=== PATIENT | male | born 1980 | race African-American/Black ===

== ENCOUNTER 2017-11-18 09:56 | Emergency (ER) | payer SELFPAY ==
[~2017-11-18] VITALS: Ht 170.2 cm; Wt 54.4 kg
[2017-11-18 10:02] VITALS: Ht 170.2 cm; Wt 54.4 kg
[2017-11-18 10:34] LABS: BASOPHIL % 0.5 % (0-2); PLATELET COUNT 248 x10^3mcL (130-400); RED CELL DISTRIBUTION WIDTH 12.8 % (11.5-14.5)
[2017-11-18 10:59] LABS: CALCIUM 9.3 mg/dL (8.5-10.1); CARBON DIOXIDE 22.2 mmol/L (21-32); CREATININE SERUM 1.5 mg/dL (0.7-1.3); POTASSIUM SERUM 5.4 mmol/L (3.5-5.1)
[2017-11-18 11:01] LABS: ALBUMIN 4.2 g/dL (3.4-5.0); BILIRUBIN TOTAL 0.98 mg/dL (0.20-1.00)
[2017-11-18 11:03] LABS: TOTAL PROTEIN, SERUM 9.2 g/dL (6.4-8.2)
[2017-11-18 13:11] LABS: UA SPECIFIC GRAVITY <=1.005 (1.005-1.035); microscopic required? YES; urine erythrocyte TRACE (NEGATIVE)
[2017-11-18 13:35] LABS: AMPHETAMINE QUAL UR NONE DETECTED (NEG <=1000)
[2017-11-18 13:45] LABS: T3 TOTAL 0.71 ng/mL
[2017-11-18 14:41] LABS: AMYLASE 39 U/L (25-115); PHOSPHOROUS 6.5 mg/dL (2.5-4.9)
[2017-11-18 14:42] LABS: CHOLESTEROL 228 mg/dL (<200); CHOLESTEROL/HDL RATIO 7.4; HDL CHOLESTEROL 31 mg/dL (40-60); TRIGLYCERIDES 571 mg/dL (<150)
[2017-11-18 15:03] LABS: FREE T4 1.01 ng/dL (0.76-1.46); FREE THYROXINE INDEX 2.2 ug/dL (1.4-4.5)
[2017-11-18 17:15] LABS: CALCIUM 8.7 mg/dL (8.5-10.1); CARBON DIOXIDE 27.3 mmol/L (21-32); CHLORIDE SERUM 103 mmol/L (98-107); GFR1 > 60 mL/min; GLUCOSE SERUM 344 mg/dL (74-106); POTASSIUM SERUM 4.8 mmol/L (3.5-5.1); SODIUM SERUM 143 mmol/L (136-145)
[2017-11-18 17:20] LABS: MAGNESIUM 2.7 mg/dL (1.8-2.4); PHOSPHOROUS 3.9 mg/dL (2.5-4.9)
[2017-11-19 07:18] VITALS: BP 128/79
== END 2017-11-19 07:18 | disposition home or self-care (01) ==
LOC: EDBD 09:56 → ED 09:56
PROVIDERS: Emergency Medicine; Family Medicine
DX: E11.65 Type 2 diabetes mellitus with hyperglycemia (principal); E11.22 Type 2 diabetes mellitus with diabetic chronic kidney disease; N18.9 Chronic kidney disease, unspecified
CPT/HCPCS: 83880; 84439; J1815; J7030; Q0092